=== PATIENT | male | born 1995 | race Two or more races ===

== ENCOUNTER 2019-12-27 11:50 | Emergency (ER) | payer MEDICAID ==
[~2019-12-27] VITALS: Ht 162.6 cm; Wt 68.0 kg
[2019-12-27] MEDS ORDERED: LIDOCAINE HCL/PF 1% 30 ML SDV ONE (11:57)
[2019-12-27] MEDS ORDERED: TDAP [DIPH/PERTUSSIS/TET] 0.5 ML VIAL IM ONE ×2 (12:00→12:06)
--- NOTE | 2019-12-27 12:00 | NUR ---
DR VENEGAS AT BEDSIDE FOR EVAL.
--- NOTE | 2019-12-27 12:12 | NUR ---
RADIOLOGY AT BEDSIDE FOR L FINGER XRAY.
--- NOTE | 2019-12-27 12:16 | NUR ---
DR VENEGAS AT BEDSIDE FOR LACERATION REPAIR.
--- NOTE | 2019-12-27 13:04 | NUR ---
tech at bedside for wound care
[2019-12-27 13:24] VITALS: BP 144/80
--- NOTE | 2019-12-27 13:24 | NUR ---
Patient discharged to home in stable condition. Written and verbal after care instructions given. Patient verbalizes understanding of instruction.
== END 2019-12-27 13:25 | disposition home or self-care (01) ==
LOC: ER 11:53
DX: S61.223A Laceration with foreign body of left middle finger without damage to nail, initial encounter (principal); W31.89XA Contact with other specified machinery, initial encounter; Y93.89 Activity, other specified; Y92.89 Other specified places as the place of occurrence of the external cause; Y99.8 Other external cause status
CPT/HCPCS: 12042; 73140; 90471; 90715; 99284; A6403; J3490

== ENCOUNTER 2019-12-29 11:40 | Emergency (ER) | payer MEDICAID ==
[~2019-12-29] VITALS: Ht 162.6 cm; Wt 70.8 kg
[2019-12-29 11:51] VITALS: BP 116/74
--- NOTE | 2019-12-29 12:33 | NUR ---
Patient DC home intruction given agrees to call PMD in 2 days .
--- NOTE | 2019-12-29 12:33 | NUR ---
Dressing Applied to left middle finger .
== END 2019-12-29 12:35 | disposition home or self-care (01) ==
LOC: ER 11:47
DX: S61.213D Laceration without foreign body of left middle finger without damage to nail, subsequent encounter (principal); X58.XXXD Exposure to other specified factors, subsequent encounter

== ENCOUNTER 2020-01-02 10:01 | Emergency (ER) | payer MEDICAID ==
[~2020-01-02] VITALS: Ht 152.4 cm; Wt 63.5 kg
[2020-01-02] MEDS ORDERED: LIDOCAINE HCL/PF 1% 30 ML SDV ONE (10:20)
--- NOTE | 2020-01-02 10:31 | NUR ---
DR VAZQUEZ AT BEDSIDE FOR EVAL.
[2020-01-02] MEDS ORDERED: BENZOIN COMPOUND TINCT 60 ML BOTTLE ONE (10:50)
[2020-01-02] MEDS: BACITRACIN ZINC OINT PACKET 1 EA PACKET TP ONE (11:03)
[2020-01-02] MEDS: LIDOCAINE 1% INJ 50 ML MDV IJ ONE (11:03)
--- NOTE | 2020-01-02 11:49 | NUR ---
PT PRIVED W/ WOUND CARE. DISCHARGE HOME/ CONDITION STABLE.
[2020-01-02 11:50] VITALS: BP 134/65
== END 2020-01-02 11:50 | disposition home or self-care (01) ==
LOC: ER 10:06
DX: S61.213D Laceration without foreign body of left middle finger without damage to nail, subsequent encounter (principal); W31.89XD Contact with other specified machinery, subsequent encounter
CPT/HCPCS: 29130; 99283; A6403; J3490

== ENCOUNTER 2020-01-04 10:05 | Emergency (ER) | payer MEDICAID ==
[~2020-01-04] VITALS: Ht 152.4 cm; Wt 63.5 kg
[2020-01-04 10:11] VITALS: BP 130/71
[2020-01-04] MEDS ORDERED: BENZOIN COMPOUND TINCT 60 ML BOTTLE ONE (10:17)
== END 2020-01-04 11:16 | disposition home or self-care (01) ==
LOC: ER 10:05
DX: S61.213D Laceration without foreign body of left middle finger without damage to nail, subsequent encounter (principal); X58.XXXD Exposure to other specified factors, subsequent encounter